=== PATIENT | female | born 1960 | race Hispanic/Latino ===

== ENCOUNTER → 2017-04-11 | Day surgery (SDC) | payer BC ==
[2017-04-03 13:59] LABS: ANION GAP 12.4 mmol/L (8-16); CREATININE, SERUM 1.3 mg/dL (0.57-1.11); POTASSIUM 4.4 mmol/L (3.5-5.1)
[~2017-04-11] MED LIST: ACTOS30 MG PO; AMLODIPINE BESYL5 MG PO; ASPIR 8181 MG PO; BUPIVACAINE HCL 0.5% INJ 30 ML VIAL INJ ONE; CALCIUM CARBON500 MG PO; CINNAMON500 MG PO; COQ PO; DEXAMETHASONE SOD PHOS INJ 4 MG/ML VIAL ONE; DEXTROSE 5%/LACTATED RINGERS 1,000 ML IV ONE; FENTANYL CITRATE/PF 100MCG/2 ML INJ ONE; FISH OIL 1,0001 EAC2 PO; GABAPENTIN300 MG PO; GLUCOVANCE 2.51 EACH PO; HUMALOG100 UNIT/1 SC; LANTUS100 UNITS/ SC; LIDOCAINE HCL 2% LOCAL INJ 5 ML SDV VIAL INJ ONE; LISINOPRIL2.5 MG PO; LOVASTATIN20 MG PO; METOPROLOL SUCC25 MG PO; MIDAZOLAM HCL 2 MG/2 ML VIAL ONE; MULTI-VITAMIN1 EACH PO; MUPIROCIN 2% OINT 22 GM TUBE ONE; NAPROXEN250 MG PO; NAPROXEN500 MG PO; ONDANSETRON HCL INJ 2 MG/ML VIAL ONE; PROBIOTICS PO; PROPOFOL IV EMULSION 10 MG/ML 20 ML VIAL ONE; PROTONIX20 MG PO; REGLAN10 MG PO; SEVOFLURANE INHAL SOLN 250 ML PEN BTL ONE; SUPER B COMPLE150 MG PO; SYNTHROID125 MCG PO; VIT C PO
--- NOTE | 2017-05-29 15:18 | Operative Report ---
PREOPERATIVE DIAGNOSIS: Stenosing tenosynovitis of the left thumb and the right long finger. POSTOPERATIVE DIAGNOSIS: Stenosing tenosynovitis of the left thumb and the right long finger. OPERATION PERFORMED: Tenovaginotomy of the left thumb and the right long finger. ANESTHESIA: General. HISTORY: The patient is a 57-year-old female who presents with stenosing tenosynovitis of the left thumb and the right long finger that are recalcitrant to conservative treatment. The risks, benefits, and alternatives of treatment were discussed with the patient and she is prepared to undergo the procedure as outlined. DESCRIPTION OF PROCEDURE: The patient was brought to the operating theater. After the induction of adequate general/regional anesthesia, the patient was prepped and draped in a supine position. A time out was performed by the entire operating room team. An oblique incision was marked out over the A1 margarito of the left thumb. The upper extremity was exsanguinated, and a tourniquet was inflated to a pressure of 250 mmHg. The incision was made through the skin and subcutaneous tissues. All venous tributaries were controlled with bipolar cautery. The incision was deepened through the palmar tissues. The neurovascular bundles on the radial and ulnar sides of the flexor tendon sheath were identified and retracted away from the flexor tendon sheath and preserved. The A1 margarito of the affected finger was identified and incised longitudinally, taking care to protect and preserve the flexor tendons within the sheath. After the complete length of the margarito had been transected, the tendons were placed in a range of motion. There was noted to be good motion without any locking. The wound was then copiously irrigated with bacteriostatic saline and closed with 5-0 nylon in an interrupted horizontal mattress fashion. A Marcaine field block was performed at the operative site. The same procedure was performed on the right long finger. The tourniquet was deflated. All the fingers pinked up nicely. A sterile bulky conforming bandage was applied to the hand, and the patient was returned to the recovery room in satisfactory condition and was discharged with a postoperative instruction sheet as well as a followup appointment. Job#: [id number]
== END | disposition home or self-care (01) ==
LOC: OR 06:36
PROVIDERS: ATTEND Plastic Surgery
DX: M65.312 Trigger thumb, left thumb (principal); M65.331 Trigger finger, right middle finger; G47.33 Obstructive sleep apnea (adult) (pediatric); I10 Essential (primary) hypertension; J45.909 Unspecified asthma, uncomplicated; I83.90 Asymptomatic varicose veins of unspecified lower extremity; E11.9 Type 2 diabetes mellitus without complications; K21.9 Gastro-esophageal reflux disease without esophagitis; E03.9 Hypothyroidism, unspecified; E66.01 Morbid (severe) obesity due to excess calories; F41.9 Anxiety disorder, unspecified; Z01.810 Encounter for preprocedural cardiovascular examination; Z01.812 Encounter for preprocedural laboratory examination; Z79.82 Long term (current) use of aspirin; Z79.4 Long term (current) use of insulin
CPT/HCPCS: 26055 ×2; 36415 ×2; 80048; 82948; 93005; J1100; J2001; J2250; J2405; J7120

== ENCOUNTER 2018-12-12 17:34 | Emergency (ER) | payer BC ==
[~2018-12-12] VITALS: Ht 162.6 cm; Wt 147.4 kg
[~2018-12-12 17:34] MED LIST changes: -BUPIVACAINE HCL 0.5% INJ 30 ML VIAL INJ ONE; -DEXAMETHASONE SOD PHOS INJ 4 MG/ML VIAL ONE; -DEXTROSE 5%/LACTATED RINGERS 1,000 ML IV ONE; -FENTANYL CITRATE/PF 100MCG/2 ML INJ ONE; -LIDOCAINE HCL 2% LOCAL INJ 5 ML SDV VIAL INJ ONE; -MIDAZOLAM HCL 2 MG/2 ML VIAL ONE; -MUPIROCIN 2% OINT 22 GM TUBE ONE; -ONDANSETRON HCL INJ 2 MG/ML VIAL ONE; -PROPOFOL IV EMULSION 10 MG/ML 20 ML VIAL ONE; -SEVOFLURANE INHAL SOLN 250 ML PEN BTL ONE
--- NOTE | 2018-12-12 18:07 | NUR ---
PLACED SLING ON LEFT ARM
[2018-12-12] MEDS ORDERED: ACETAMINOPHEN/CODEINE 300MG - 30MG TAB PO ONE (18:30)
--- NOTE | 2018-12-12 19:04 | Diagnostic Imaging Report ---
LEFT SHOULDER - 2 Image(s) HISTORY: Fall, pain COMPARISON: None available. FINDINGS: Bones: Diffusely decreased mineralization of the osseous structures limits bone detail. Irregular linear lucency with subtle cortical disruption at the proximal humeral metaphysis, as it appears to extend to the greater tuberosity. Osseous anchor at the greater tuberosity. Joints: Mild acromioclavicular and glenohumeral degenerative changes. Soft tissues: The soft tissues appear unremarkable. IMPRESSION: 1. Mildly impacted, acute, proximal humeral fracture with extension to the greater tuberosity. 2. Diffuse osseous demineralization. Signed by: Dr. Silas Florez D.O., M.M.M. on 12/12/2018 7:01 PM
== END 2018-12-12 20:00 | disposition home or self-care (01) ==
LOC: ER 17:34
DX: S42.202A Unspecified fracture of upper end of left humerus, initial encounter for closed fracture (principal); W01.0XXA Fall on same level from slipping, tripping and stumbling without subsequent striking against object, initial encounter; Y92.009 Unspecified place in unspecified non-institutional (private) residence as the place of occurrence of the external cause; E11.9 Type 2 diabetes mellitus without complications; I10 Essential (primary) hypertension; E03.9 Hypothyroidism, unspecified; E66.01 Morbid (severe) obesity due to excess calories; Z68.43 Body mass index [BMI] 50.0-59.9, adult; Z79.82 Long term (current) use of aspirin; Z79.4 Long term (current) use of insulin
CPT/HCPCS: 99283

== ENCOUNTER → 2019-06-16 | Day surgery (SDC) | payer BC ==
--- NOTE | 2019-06-12 12:38 | Diagnostic Imaging Report ---
Chest, PA and lateral. History: Preoperative evaluation for foot surgery. Comparison: None available. Discussion: The cardiomediastinal silhouette and pulmonary vasculature are within normal limits. The lungs are clear without evidence of consolidation or effusion. IMPRESSION: No radiographic evidence of acute cardiopulmonary abnormality. Signed by: Rolf Rojo MD on 06/12/2019 12:36 PM
[2019-06-12 12:57] LABS: ANION GAP 14.2 mmol/L (8-16); CALCIUM 9.6 mg/dL (8.4-10.2); CREATININE, SERUM 1.56 mg/dL (0.57-1.11); POTASSIUM 5.2 mmol/L (3.5-5.1)
[~2019-06-16] MED LIST changes: +BACITRACIN 50,000 UNIT VIAL ONE; +BUPIVACAINE HCL 0.5% INJ 30 ML VIAL INJ ONE; +CEFAZOLIN SOD 1 GM/NS 50ML 50 ML IV ONE; +COQ-10100 MG PO; +DEXAMETHASONE SOD PHOS INJ 4 MG/ML VIAL ONE; +EPHEDRINE SULFATE INJ 50 MG/ML VIAL ONE; +FARXIGA10 MG PO; +LIDOCAINE HCL 2% LOCAL INJ 5 ML SDV VIAL INJ ONE; +ONDANSETRON HCL INJ 2MG/ML 2ML 2 MG/ML VIAL ONE; +PROPOFOL IV EMULSION 10 MG/ML 20 ML VIAL ONE; +SEVOFLURANE INHAL SOLN 250 ML PEN BTL ONE; +[UNRECOGNIZED DRUG - OTHER] PO
[2019-06-16 07:55] VITALS: BP 133/62
--- NOTE | 2019-06-16 12:11 | Operative Report ---
DATE OF PROCEDURE: 06/16/2019 SURGEON: Wilbert Pires DPM PREOPERATIVE DIAGNOSES: 1. 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 2. Left 4th digit exostosis. PLANNED PROCEDURES: 1. Left partial 5th ray amputation. 2. Left 4th digit amputation. PROCEDURES PERFORMED: 1. Left partial 5th ray amputation. 2. Left 4th digit exostectomy. SMOKING PIPE COATER: None. ANESTHESIA: General with a postoperative block consisting of 10 mL of 0.5% Marcaine plain. HEMOSTASIS: Pneumatic ankle tourniquet set at 250 mmHg for a total time of approximately 20 minutes. MATERIALS: 3-0 nylon. ESTIMATED BLOOD LOSS: 10 mL. PATHOLOGY: Anaerobic and aerobic cultures and left partial 5th ray sent for gross specimen. DESCRIPTION OF PROCEDURE: The patient was seen in the preoperative waiting room where the correct procedure and site were identified. The patient was brought into the operating room and placed on the operating table in the supine position. General anesthesia was initiated. At this time, a well-padded pneumatic tourniquet was placed about the patient's left ankle. The left foot, ankle, and leg were scrubbed, prepped, and draped in the usual aseptic manner. The left foot, ankle, and leg were exsanguinated with an Esmarch bandage and the pneumatic ankle tourniquet was inflated to 250 mmHg for a total time of approximately 20 minutes. Attention was directed to the lateral aspect of the patient's left 5th digit where a deep macerated necrotic ulceration was noted to the medial aspect of the left 5th digit, extending down to the level of bone with purulence noted. The decision was made to proceed with a left partial 5th ray amputation. Utilizing a converging semi-elliptical incision at the level of the 5th metatarsophalangeal joint, extending down the lateral aspect of the 5th metatarsal, the case was started. The incision was carried down directly to the level of bone. Utilizing a towel clamp, the distal aspect of the digit was grasped and dissected down to the level of the 5th metatarsophalangeal joint. The 5th metatarsophalangeal joint was then disarticulated and passed off to the back table to be sent for gross specimen. Wound cultures were taken from that specimen. Next, the dissection was carried down to the level of the 5th metatarsal, where utilizing a sagittal saw, the 5th metatarsal was amputated and removed from the operative site, and passed off to the back table. The wound was then copiously irrigated with sterile saline. Next, the 4th digit was explored and there was noted to be no abscess. The bone appeared to be firm and no local acute signs of infection. Decision was made to proceed with an exostectomy. At this point, an incision was made directly over the medial aspect of the 4th digit, approximately 0.5 cm in length and utilizing a rongeur, Swati oleksandr, and a ingram rasp, the exostectomy was reduced, and copiously irrigated with sterile saline. Then, both incision sites were then reapproximated utilizing simple interrupted sutures with 3-0 nylon. All incision sites were then dressed with Betadine-soaked Adaptic, 4 x 4s, Kerlix, Bautista wrap, and a postop shoe. The patient tolerated the procedure and anesthesia well. The patient was transferred to the postoperative recovery room with vital signs stable and vascular status intact. The patient was monitored there for a short period of time before being sent home with the following written and oral instructions: 1. Keep the dressing clean, dry, and intact. 2. The patient is to remain in a partial heel touch weightbearing in a postop shoe, to avoid excessive ambulation until being seen in the office. 3. The patient is given the office number and instructed to contact us if any problems arise. DARRIAN Hansen/MANNY /[id number]
== END | disposition home or self-care (01) ==
LOC: OR 05:00
PROVIDERS: ATTEND Podiatrist Foot & Ankle Surgery
DX: M86.172 Other acute osteomyelitis, left ankle and foot (principal); M86.672 Other chronic osteomyelitis, left ankle and foot; I82.890 Acute embolism and thrombosis of other specified veins; I70.25 Atherosclerosis of native arteries of other extremities with ulceration; E03.9 Hypothyroidism, unspecified; E66.01 Morbid (severe) obesity due to excess calories; G47.33 Obstructive sleep apnea (adult) (pediatric); E11.22 Type 2 diabetes mellitus with diabetic chronic kidney disease; I12.9 Hypertensive chronic kidney disease with stage 1 through stage 4 chronic kidney disease, or unspecified chronic kidney disease; N18.3 Chronic kidney disease, stage 3 (moderate); K21.9 Gastro-esophageal reflux disease without esophagitis; Z88.1 Allergy status to other antibiotic agents; Z88.8 Allergy status to other drugs, medicaments and biological substances; Z01.812 Encounter for preprocedural laboratory examination; Z01.818 Encounter for other preprocedural examination; Z79.84 Long term (current) use of oral hypoglycemic drugs; Z79.82 Long term (current) use of aspirin; Z79.4 Long term (current) use of insulin
CPT/HCPCS: 28108; 28810; 36415 ×2; 71046; 80048; 82948; 84132; 87071; 87075; 87186; 87205; 88305; 88311; J0690; J1100; J2001; J2405; J2704; 88304

== ENCOUNTER → 2021-06-15 | Outpatient (CLI) | payer MEDICARE ==
[~2021-06-15] MED LIST changes: -BACITRACIN 50,000 UNIT VIAL ONE; -BUPIVACAINE HCL 0.5% INJ 30 ML VIAL INJ ONE; -CEFAZOLIN SOD 1 GM/NS 50ML 50 ML IV ONE; -DEXAMETHASONE SOD PHOS INJ 4 MG/ML VIAL ONE; -EPHEDRINE SULFATE INJ 50 MG/ML VIAL ONE; -LIDOCAINE HCL 2% LOCAL INJ 5 ML SDV VIAL INJ ONE; -ONDANSETRON HCL INJ 2MG/ML 2ML 2 MG/ML VIAL ONE; -PROPOFOL IV EMULSION 10 MG/ML 20 ML VIAL ONE; -SEVOFLURANE INHAL SOLN 250 ML PEN BTL ONE
== END ==
LOC: RAD 11:46
PROVIDERS: ATTEND Podiatrist Foot & Ankle Surgery
DX: I82.403 Acute embolism and thrombosis of unspecified deep veins of lower extremity, bilateral (principal)
CPT/HCPCS: 93970

== ENCOUNTER 2024-12-30 11:21 | Inpatient (IN) | payer MEDICARE ==
[~2024-12-30] VITALS: Ht 170.2 cm; Wt 152.0 kg
[~2024-12-30 11:21] MED LIST changes: +FAMOTIDINE20 MG PO; +FUROSEMIDE40 MG PO; +LOSARTAN POTASS25 MG PO; +METOPROLOL TART50 MG PO
[2024-12-30 12:50] LABS: BASOPHILS % 0.2 % (0.0-1.0); EOSINOPHILS % 0.2 % (0.0-6.0); LYMPHOCYTES % 4.9 % (18.0-39.1); MONOCYTES % 6.0 % (4.4-11.3); NEUTROPHILS % 88.5 % (38.7-80.0); RED CELL DISTRIBUTION WIDTH 13.5 % (11.7-14.4)
[2024-12-30 13:20] LABS: EST GLOMERULAR FILTRATION RATE 39.0 ML/MIN (>=60)
[2024-12-30] MEDS ORDERED: SUGAMMADEX SODIUM 200 MG/2 ML VIAL IV ONE (13:27)
[2024-12-30] MEDS ORDERED: SEVOFLURANE INHAL SOLN 250 ML PEN BTL ONE (13:27)
[2024-12-30] MEDS ORDERED: ACETAMINOPHEN 325 MG TAB ONE (15:20)
[2024-12-30 16:38] VITALS: PULSE 81; RESP 17; O2SAT 94
[2024-12-30 17:14] VITALS: TEMP 98
[2024-12-30 19:06] VITALS: PULSE 92; RESP 18
[2024-12-30] MEDS: ASPIRIN 81 MG CHEW TAB PO ONE (19:08)
[2024-12-30 20:00] VITALS: BP 127/75; PULSE 95; RESP 18; TEMP 99.2; O2SAT 96
[2024-12-30 20:08] VITALS: PULSE 78; RESP 18; O2SAT 94
[2024-12-30] MEDS ORDERED: DEXTROSE 50% SYRINGE 50 ML IV PRN (21:45)
[2024-12-31] VITALS (11 sets, daily range): BP systolic 99–142; BP diastolic 53–75; PULSE 78–110; RESP 16–20; TEMP 97.1–101.9; O2SAT 94–98
[2024-12-31 02:12] LABS: LEUKOCYTE ESTERASE ,URINE NEGATIVE (NEGATIVE)
[2024-12-31 02:13] LABS: PROTEIN,URINE DIPSTICK NEGATIVE (NEGATIVE); URINE UROBILINOGEN 0.2 mg/dL (0.2 - 1)
[2024-12-31 02:22] LABS: EPITHELIAL CELLS,URINE MODERATE /LPF
[2024-12-31 02:23] LABS: WBC,URINE (MAN) 21-50 /HPF (0-5)
[2024-12-31] MEDS ORDERED: NIFEDIPINE10 MG PO (04:30)
[2024-12-31 06:00] LABS: BASOPHILS % 0.1 % (0.0-1.0); EOSINOPHILS % 0.0 % (0.0-6.0); LYMPHOCYTES % 4.5 % (18.0-39.1); MONOCYTES % 5.0 % (4.4-11.3); NEUTROPHILS % 89.9 % (38.7-80.0); RED CELL DISTRIBUTION WIDTH 14.1 % (11.7-14.4)
[2024-12-31] MEDS: METRONIDAZOLE 500MG/NS 100ML 100 ML IV SCH (06:01)
[2024-12-31] MEDS: INSULIN LISPRO 100 UNIT/1 ML 3ML VIAL SQ SCH ×2 (06:21→11:50)
[2024-12-31 06:24] LABS: EST GLOMERULAR FILTRATION RATE 28.0 ML/MIN (>=60)
[2024-12-31] MEDS ORDERED: SODIUM CHLORIDE 0.9% 1000ML 1,000 ML IV SCH ×2 (07:30→09:30)
[2024-12-31] MEDS: SODIUM CHLORIDE 0.9% 1000ML 1,000 ML IV ONE (08:23)
[2024-12-31] MEDS: METOPROLOL TARTRATE 50 MG TAB PO SCH (08:24)
[2024-12-31] MEDS: NIFEDIPINE CR 30 MG TAB PO SCH (08:24)
[2024-12-31] MEDS: ACETAMINOPHEN 325 MG TAB PO PRN (08:36)
[2024-12-31] MEDS: ASPIRIN 81 MG CHEW TAB PO SCH (08:37)
[2024-12-31] MEDS ORDERED: DEXTROSE 50% SYRINGE 50 ML IV PRN (08:45)
[2024-12-31] MEDS: INSULIN GLARGINE 100 UNITS/ML VIAL SQ SCH (09:28)
[2024-12-31] MEDS: SODIUM CHLORIDE 0.9% 1000ML 1,000 ML IV SCH (09:34)
[2024-12-31 11:09] LABS: ABG HCO3 12 mmol/L (22-26); ABG PCO2 41 mmHg (35-45); ABG PH 7.43 (7.35-7.45); ABG PO2 69 mmHg (80-105)
[2024-12-31 11:10] LABS: ABG BASE EXCESS 3.0 mmol/L (-2 - 3); ABG OXYGEN SATURATION 94.0 % (95-98); ABG TCO2 28
[2024-12-31 11:21] LABS: % IRON SATURATION 14.0 % (15-50)
[2025-01-01] VITALS (9 sets, daily range): BP systolic 125–167; BP diastolic 51–86; PULSE 62–94; RESP 17–18; TEMP 97.4–98.7; O2SAT 96–100
[2025-01-01 05:57] LABS: BASOPHILS % 0.3 % (0.0-1.0); EOSINOPHILS % 1.7 % (0.0-6.0); LYMPHOCYTES % 13.4 % (18.0-39.1); MONOCYTES % 7.4 % (4.4-11.3); NEUTROPHILS % 76.8 % (38.7-80.0); RED CELL DISTRIBUTION WIDTH 14.3 % (11.7-14.4)
[2025-01-01 06:08] LABS: EST GLOMERULAR FILTRATION RATE 39.0 ML/MIN (>=60)
[2025-01-01] MEDS: LEVOTHYROXINE SODIUM 125 MCG TAB PO SCH (06:30)
[2025-01-01] MEDS: INSULIN GLARGINE 100 UNITS/ML VIAL SQ SCH (09:00)
[2025-01-01] MEDS: IRON SUCROSE 100 MG in SODIUM CHLORIDE 0.9% 100 ML IV SCH (09:44)
[2025-01-01] MEDS: POTASSIUM CHLORIDE 20MEQ/100ML 100 ML IV SCH (10:47)
[2025-01-01] MEDS: Morphine 4mg INJECTION 4 MG/ML INJ IV PRN (18:34)
[2025-01-01] MEDS: HYDROMORPHONE 1MG/1ML INJ IV PRN (21:36)
[2025-01-02] VITALS (10 sets, daily range): BP systolic 129–164; BP diastolic 61–77; PULSE 53–89; RESP 18–21; TEMP 97.9–99.1; O2SAT 93–98
[2025-01-02 06:19] LABS: BASOPHILS % 0.1 % (0.0-1.0); EOSINOPHILS % 0.0 % (0.0-6.0); LYMPHOCYTES % 8.7 % (18.0-39.1); MONOCYTES % 5.4 % (4.4-11.3); NEUTROPHILS % 85.5 % (38.7-80.0); RED CELL DISTRIBUTION WIDTH 14.2 % (11.7-14.4)
[2025-01-02 06:37] LABS: EST GLOMERULAR FILTRATION RATE 50.0 ML/MIN (>=60)
[2025-01-02] MEDS: HYDROCODONE/APAP 7.5MG-325MG 1 EA TAB PO PRN (17:23)
[2025-01-02] MEDS: INSULIN LISPRO 100 UNIT/1 ML 3ML VIAL SQ SCH (21:43)
[2025-01-03] VITALS (10 sets, daily range): BP systolic 135–159; BP diastolic 66–82; PULSE 58–80; RESP 18–21; TEMP 98.2–99.3; O2SAT 95–100
[2025-01-03 08:10] LABS: BASOPHILS % 0.3 % (0.0-1.0); EOSINOPHILS % 0.5 % (0.0-6.0); LYMPHOCYTES % 15.1 % (18.0-39.1); MONOCYTES % 9.8 % (4.4-11.3); NEUTROPHILS % 73.1 % (38.7-80.0); RED CELL DISTRIBUTION WIDTH 14.6 % (11.7-14.4)
[2025-01-03 08:31] LABS: EST GLOMERULAR FILTRATION RATE 49.0 ML/MIN (>=60)
[2025-01-03] MEDS: METRONIDAZOLE 500MG/NS 100ML 100 ML IV ONE (09:11)
[2025-01-03] MEDS: SODIUM CHLORIDE 0.9% 1000ML 1,000 ML IV SCH (12:29)
[2025-01-04] VITALS (10 sets, daily range): BP systolic 140–171; BP diastolic 68–71; PULSE 2–81; RESP 18–20; TEMP 98.2–98.9; O2SAT 94–99
[2025-01-04 06:11] LABS: BASOPHILS % 0.6 % (0.0-1.0); EOSINOPHILS % 1.0 % (0.0-6.0); LYMPHOCYTES % 22.3 % (18.0-39.1); MONOCYTES % 9.9 % (4.4-11.3); NEUTROPHILS % 63.8 % (38.7-80.0); RED CELL DISTRIBUTION WIDTH 14.9 % (11.7-14.4)
[2025-01-04 06:32] LABS: EST GLOMERULAR FILTRATION RATE 71.0 ML/MIN (>=60)
[2025-01-04] MEDS ORDERED: IRON SUCROSE 100 MG in SODIUM CHLORIDE 0.9% 100 ML IV SCH (07:30)
[2025-01-04 09:44] LABS: HEPATITIS B CORE IGM (P) Negative; HEPATITIS B SURFACE AG (P) Negative
[2025-01-04 09:45] LABS: HEPATITIS A ANTIBODY IGM (P) Negative
[2025-01-04] MEDS: LOSARTAN POTASSIUM 25 MG TAB PO SCH (10:00)
[2025-01-05] MEDS: FUROSEMIDE INJ 10 MG/ML 4 ML VIAL IV SCH (00:42)
[2025-01-05 03:24] VITALS: BP 141/66; PULSE 79; RESP 18; TEMP 98.6; O2SAT 98
[2025-01-05 05:36] LABS: BASOPHILS % 0.4 % (0.0-1.0); EOSINOPHILS % 1.2 % (0.0-6.0); LYMPHOCYTES % 17.8 % (18.0-39.1); MONOCYTES % 9.2 % (4.4-11.3); NEUTROPHILS % 68.3 % (38.7-80.0); RED CELL DISTRIBUTION WIDTH 14.7 % (11.7-14.4)
[2025-01-05 06:08] LABS: EST GLOMERULAR FILTRATION RATE 76.0 ML/MIN (>=60)
[2025-01-05 07:19] VITALS: PULSE 78; RESP 20; O2SAT 96
[2025-01-05 08:00] VITALS: BP 161/75; PULSE 84; RESP 18; TEMP 98.6; O2SAT 98
[2025-01-05] MEDS ORDERED: HYDROCODON-ACE1 EA11 PO (11:00)
[2025-01-05] MEDS ORDERED: TYLENOL EXTRA500 MG PO (11:00)
[2025-01-05 12:00] VITALS: BP 172/71; PULSE 81; RESP 20; TEMP 99; O2SAT 96
== END 2025-01-05 15:58 | disposition home or self-care (01) | DRG 418 ==
LOC: ER 11:37 → ERHOLD 14:11 → MED/SURG2 19:11 → OBSVTOIN 12-31 06:34
PROVIDERS: ADMIT Internal Medicine; ATTEND Internal Medicine
PROC: 4A033R1 Measurement of Arterial Saturation, Peripheral, Percutaneous Approach (ICD-10-PCS; 2024-12-31)
PROC: 0FN44ZZ Release Gallbladder, Percutaneous Endoscopic Approach (ICD-10-PCS; 2025-01-01)
PROC: 0FT44ZZ Resection of Gallbladder, Percutaneous Endoscopic Approach (ICD-10-PCS; principal; 2025-01-01 15:14)
DX: K81.0 Acute cholecystitis (principal); E87.1 Hypo-osmolality and hyponatremia; K82.1 Hydrops of gallbladder; Z68.43 Body mass index [BMI] 50.0-59.9, adult; N17.9 Acute kidney failure, unspecified; R65.10 Systemic inflammatory response syndrome (SIRS) of non-infectious origin without acute organ dysfunction; N39.0 Urinary tract infection, site not specified; I16.1 Hypertensive emergency; J98.11 Atelectasis; K82.8 Other specified diseases of gallbladder; K74.60 Unspecified cirrhosis of liver; K76.0 Fatty (change of) liver, not elsewhere classified; R74.01 Elevation of levels of liver transaminase levels; I12.9 Hypertensive chronic kidney disease with stage 1 through stage 4 chronic kidney disease, or unspecified chronic kidney disease; E11.22 Type 2 diabetes mellitus with diabetic chronic kidney disease; N18.32 Chronic kidney disease, stage 3b; Z79.4 Long term (current) use of insulin; D50.9 Iron deficiency anemia, unspecified; D63.8 Anemia in other chronic diseases classified elsewhere; K21.9 Gastro-esophageal reflux disease without esophagitis; E66.01 Morbid (severe) obesity due to excess calories; E03.9 Hypothyroidism, unspecified; D69.6 Thrombocytopenia, unspecified; R07.89 Other chest pain; R74.8 Abnormal levels of other serum enzymes; Z89.422 Acquired absence of other left toe(s); Z79.899 Other long term (current) drug therapy; Z79.82 Long term (current) use of aspirin
CPT/HCPCS: 36415; 36600; 71045; 74176; 74181; 76705; 80048; 80053; 80076; 81001; 82550; 82607; 82728; 82746; 82805; 82948; 83540; 83605; 83690; 83880; 84466; 84484; 85025; 85045; 87040; 87086; 87186; 88304; 93005; 93971; 94799; 99284; C1766; G0378; J0692; J0696; J1171; J1756; J1815; J1938; J2270; J2470; J3480; J7030; J7050

== ENCOUNTER → 2025-02-03 | Day surgery (SDC) | payer MEDICARE ==
[2025-01-29 13:08] LABS: BASOPHILS % 0.3 % (0.0-1.0); EOSINOPHILS % 2.3 % (0.0-6.0); LYMPHOCYTES % 30.2 % (18.0-39.1); MONOCYTES % 7.9 % (4.4-11.3); NEUTROPHILS % 58.9 % (38.7-80.0); RED CELL DISTRIBUTION WIDTH 14.0 % (11.7-14.4)
[~2025-02-03] MED LIST changes: +DEXTROSE 5% 250ML 250 ML IV ONE; +FENTANYL CITRATE/PF 100MCG/2 ML INJ ONE; +HYDROCODON-ACE1 EA11 PO; +LACTATED RINGER'S 1,000 ML ONE; +LIDOCAINE HCL 2% LOCAL INJ 5 ML SDV VIAL INJ ONE; +NIFEDIPINE10 MG PO; +PANTOPRAZOLE SO40 MG PO; +PROPOFOL IV EMULSION 10 MG/ML 20 ML VIAL ONE; +PROPOFOL IV EMULSION 50 ML IV ONE; +TYLENOL EXTRA500 MG PO
[2025-02-03 13:55] VITALS: TEMP 98.9
[2025-02-03 14:25] VITALS: BP 123/60; PULSE 61; RESP 16; O2SAT 98
== END | disposition home or self-care (01) ==
LOC: OR 10:14
PROVIDERS: ATTEND Internal Medicine Gastroenterology
DX: D63.8 Anemia in other chronic diseases classified elsewhere (principal); K63.5 Polyp of colon; K31.7 Polyp of stomach and duodenum; K29.60 Other gastritis without bleeding; K22.2 Esophageal obstruction; K20.90 Esophagitis, unspecified without bleeding; K57.30 Diverticulosis of large intestine without perforation or abscess without bleeding; K21.9 Gastro-esophageal reflux disease without esophagitis; K64.8 Other hemorrhoids; K74.60 Unspecified cirrhosis of liver; R74.8 Abnormal levels of other serum enzymes; G47.33 Obstructive sleep apnea (adult) (pediatric); E11.22 Type 2 diabetes mellitus with diabetic chronic kidney disease; I12.9 Hypertensive chronic kidney disease with stage 1 through stage 4 chronic kidney disease, or unspecified chronic kidney disease; N18.9 Chronic kidney disease, unspecified; Z71.89 Other specified counseling; E03.9 Hypothyroidism, unspecified; E78.5 Hyperlipidemia, unspecified; E66.01 Morbid (severe) obesity due to excess calories; G62.9 Polyneuropathy, unspecified; Z88.1 Allergy status to other antibiotic agents; Z88.8 Allergy status to other drugs, medicaments and biological substances; Z01.810 Encounter for preprocedural cardiovascular examination; Z01.812 Encounter for preprocedural laboratory examination; Z79.82 Long term (current) use of aspirin; Z79.899 Other long term (current) drug therapy; Z68.42 Body mass index [BMI] 45.0-49.9, adult; Z71.3 Dietary counseling and surveillance; Z91.81 History of falling; Z80.0 Family history of malignant neoplasm of digestive organs
CPT/HCPCS: 36415 ×2; 43239; 43251; 43450; 45385; 82948; 85025; 93005; J2003; J2470; J2704 ×2; J3010; J7121; 45378